=== PATIENT | female | born 1995 | race Hispanic/Latino ===

== ENCOUNTER 2023-11-21 09:00 | Outpatient (RCR) | payer OTHER, SELFPAY ==
[2023-11-21 09:52] VITALS: BP 145/68
[2023-11-21 10:17] VITALS: BP 136/73
[2023-11-21 10:40] VITALS: BP 126/75
[2023-11-21 12:25] VITALS: BP 141/72
== END 2023-12-02 23:59 | disposition home or self-care (01) ==
LOC: OID 09:00
PROVIDERS: ATTENDING PHYSICIAN Nurse Practitioner Primary Care
DX: D57.1 Sickle-cell disease without crisis (principal)
CPT/HCPCS: 36415; 86850; 86870; 86900; 86901; 86902; 86920; 86922; P9058